=== PATIENT | female | born 1960 | race Caucasian/White ===

== ENCOUNTER 2021-01-28 14:20 | Emergency (ER) | payer MEDICAID, OTHER ==
[2021-01-28] MEDS ORDERED: Propofol 200 MG/20 ML SDV IV ONE (14:21)
[2021-01-28] MEDS ORDERED: Lidocaine 2% 5 ML SDV INJECT ONE (14:21)
[2021-01-28] MEDS ORDERED: HYDROmorphone 2 MG/ML SDV IVPUSH ONE (14:40)
[2021-01-28] MEDS ORDERED: Midazolam 1 MG/ML 2 ML SDV IVPUSH ONE (15:10)
--- NOTE | 2021-01-28 15:53 | EDM.PDOC ---
ED HPI GENERAL MEDICAL PROBLEM - General Chief Complaint: Lower Extremity Injury/Pain Stated Complaint: RIGHT HIP PAIN Time Seen by Provider: 01/28/21 14:20 Source of Information: Reports: Patient History Limitations: Reports: No Limitations - History of Present Illness INITIAL COMMENTS - FREE TEXT/NARRATIVE: c/o right hip pain right THR 3m ago at [facility] for DJD, scheduled for left THR on 02/13 bend over at home to put on boots, twisted to right and felt a pop and thinks the hip came out EMS brings her in Treatments PILOT MANAGER: Reports: IV/IO Other Treatments PILOT MANAGER: 2MG DILAUDID IV, 1MG VERSED IV Right Hip Pain Score (Numeric/FACES): 10 - Related Data Allergies Allergy/AdvReac Type Severity Reaction Status Date / Time No Known Allergies Allergy Verified 01/28/21 14:29 Past Medical History Psychiatric History: Reports: Anxiety Endocrine/Metabolic History: Reports: Hypothyroidism - Past Surgical History GI Surgical History: Reports: Appendectomy Female Surgical History: Reports: Section Neurological Surgical History: Reports: C-Spine, Laminectomy, Lumbar Spine, Spinal Fusion Musculoskeletal Surgical History: Reports: Hip Replacement, Other (See Below) Other Musculoskeletal Surgeries/Procedures:: right total hip Social & Family History - Tobacco Use Tobacco Use Status *Q: Never Tobacco User - Caffeine Use Caffeine Use: Reports: None - Recreational Drug Use Recreational Drug Use: No Review of Systems - Review of Systems Review Of Systems: See Below Constitutional: Reports: No Symptoms Eyes: Reports: No Symptoms Ears: Reports: No Symptoms Nose: Reports: No Symptoms Mouth/Throat: Reports: No Symptoms Respiratory: Reports: No Symptoms Cardiovascular: Reports: No Symptoms GI/Abdominal: Reports: No Symptoms Genitourinary: Reports: No Symptoms Musculoskeletal: Reports: Other (hip pain) Skin: Reports: No Symptoms Neurological: Reports: No Symptoms Psychiatric: Reports: No Symptoms ED EXAM, GENERAL - Physical Exam Exam: See Below Free Text/Narrative:: shortening of right hip, 2+ right DP pulse after reduction XR showed ball superior and slightly inferior to socket but anterior to ilium, d/w radiologist Dr Foster who did not indentiff fx Levi from anesthesia provided sedation, using Captain Navarro technique there was a light clunk and then audible slipping of bone, however still 3 cm of RLE shortening and imaging showed no reduction, Captain Navarro technique used again and there was sudden movement with lengthening of leg and again a light click, legs same length, imaging showed good alignment Exam Limited By: No Limitations General Appearance: Anxious Neurological: Alert, Oriented, CN II-XII Intact, Normal Cognition, No Motor/Sensory Deficits Psychiatric: Anxious Skin Exam: Warm, Dry, Intact, Normal Color, No Rash Lymphatic: No Adenopathy Course - Vital Signs Last Recorded V/S: Last Vital Signs Temp 36.9 C 01/28/21 14:20 Pulse 81 01/28/21 14:20 Resp 22 H 01/28/21 14:20 BP 134/91 H 01/28/21 14:20 Pulse Ox 96 01/28/21 14:20 - Orders/Labs/Meds Orders: Active Orders 24 hr Category Date Time Status Hip Min 1V Rt [CR] Stat Exams 01/28/21 15:46 Taken Hip Min 2V or 3V w Pelvis Rt [CR] Stat Exams 01/28/21 14:58 Taken Meds: Medications Discontinued Medications Generic Name Dose Route Start Last Admin Trade Name Bryanna PRN Reason Stop Dose Admin Hydromorphone HCl 1 mg 01/28/21 14:40 01/28/21 14:44 Hydromorphone 2 Mg/Ml Sdv IVPUSH 01/28/21 14:41 1 mg ONETIME ONE Administration Midazolam HCl 1 mg 01/28/21 15:10 01/28/21 15:20 Midazolam 1 Mg/Ml 2 Ml Sdv IVPUSH 01/28/21 15:11 1 mg ONETIME ONE Administration - Re-Assessments/Exams Free Text/Narrative Re-Assessment/Exam: 01/28/21 16:34 d/w Dr Carrasco reconcilement clerk for carolina Nguyen who recommended crutches with light toe touching and f/u with her surgeon this week pt agrees also has spinal stenosis altho crutches should not affect the back Departure - Departure Time of Disposition: 16:35 Disposition: Home, Self-Care 01 Condition: Good Clinical Impression: Subluxation of right hip - Discharge Information *PRESCRIPTION DRUG MONITORING PROGRAM REVIEWED*: Not Applicable *COPY OF PRESCRIPTION DRUG MONITORING REPORT IN PATIENT KATHERYN: Not Applicable Instructions: Crutch Use, Adult, [id number] Forms: ED Department Discharge Additional Instructions: Avoid bending and twisting at the hip. Use ice to right hip joint for 10 minutes 4 times a day for 2 days, longer if needed. Use crutches. May do light toe touching but do not put full weight on the hip. Sepsis Event Note (ED) - Evaluation Sepsis Screening Result: No Definite Risk - Focused Exam Vital Signs: Vital Signs Temp Pulse Resp BP Pulse Ox 01/28/21 14:20 36.9 C 81 22 H 134/91 H 96 - My Orders Last 24 Hours: My Active Orders 01/28/21 14:58 Hip Min 2V or 3V w Pelvis Rt [CR] Stat 01/28/21 15:46 Hip Min 1V Rt [CR] Stat - Assessment/Plan Last 24 Hours: My Active Orders 01/28/21 14:58 Hip Min 2V or 3V w Pelvis Rt [CR] Stat 01/28/21 15:46 Hip Min 1V Rt [CR] Stat
--- NOTE | 2021-01-28 17:49 | CR ---
INDICATION: Fall with right hip pain. RIGHT HIP: Frontal view of the pelvis with two AP views of the right hip and a lateral view of the right hip revealed a posterosuperior dislocation of the femoral head component of the total hip arthroplasty. No definite fracture site was identified. Degenerative changes are noted at the left hip joint with narrowing of the joint space superiorly. Exuberant new bone formation is noted at the iliac bone on the left, etiology indeterminate and should be correlated clinically as to the possibility of a postsurgical site. Additional workup may be warranted, if no history of postsurgical change is present for that area, such as MRI or CT of the pelvis. MTDD
--- NOTE | 2021-01-28 17:51 | CR ---
INDICATION: Post reduction. RIGHT HIP: Initial view showed evidence of the superior dislocation at the right total hip arthroplasty. A second view with postreduction showed the femoral head component appearing to lie within the acetabular component. It is difficult to entirely exclude continued dislocation without a lateral view, however. MTDD
== END 2021-01-28 16:57 | disposition home or self-care (01) ==
LOC: FB.ED 14:20
DX: S73.001A Unspecified subluxation of right hip, initial encounter (principal); E03.9 Hypothyroidism, unspecified; X50.1XXA Overexertion from prolonged static or awkward postures, initial encounter; Y92.009 Unspecified place in unspecified non-institutional (private) residence as the place of occurrence of the external cause
CPT/HCPCS: 01200-QZ; 27265; 73501-RT; 73502-RT; 96374; 99152; 99153; 99284-25; J1170; J2250; J2704

== ENCOUNTER 2021-02-17 18:30 | Emergency (ER) | payer MEDICAID ==
--- NOTE | 2021-02-17 19:38 | EDM.PDOC ---
ED HPI GENERAL MEDICAL PROBLEM - General Stated Complaint: SWELLING Time Seen by Provider: 02/17/21 19:33 - History of Present Illness INITIAL COMMENTS - FREE TEXT/NARRATIVE: Ms clark complains of left lower ext swelling. She had total hip replacement on that side on Sunday last week. She went yesterday for follow-up and an ultrasound was done for DVT and came back negative. She denies pain,fever or drainage from the wound. On the way from [place] today, she had episodes where she 'lost consciousness' [address] times [address] This happened was at home and she will come felt a few seconds. She describes episodes where she sees white, coming up, allowing flashing, and she drops things and does not remember where she needs. Ms. Clark has a history of anxiety disorder, chronic pain syndrome on opiate contract, restless legs and insomnia. - Related Data Allergies Allergy/AdvReac Type Severity Reaction Status Date / Time No Known Allergies Allergy Verified 01/28/21 14:29 Past Medical History Psychiatric History: Reports: Anxiety Endocrine/Metabolic History: Reports: Hypothyroidism - Past Surgical History GI Surgical History: Reports: Appendectomy Female Surgical History: Reports: Section Neurological Surgical History: Reports: C-Spine, Laminectomy, Lumbar Spine, Spinal Fusion Musculoskeletal Surgical History: Reports: Hip Replacement, Other (See Below) Other Musculoskeletal Surgeries/Procedures:: right total hip Social & Family History - Caffeine Use Caffeine Use: Reports: None ED ROS GENERAL - Review of Systems Review Of Systems: Comprehensive ROS is negative, except as noted in HPI. - Physical Exam Exam: See Below Exam Limited By: No Limitations General Appearance: Alert, No Apparent Distress, Anxious Nose: Normal Inspection Throat/Mouth: Normal Inspection Head Exam: Atraumatic Respiratory/Chest: No Respiratory Distress, Lungs Clear Neuro Exam (Abbreviated): Alert, Oriented, CN II-XII Intact Extremities: Pedal Edema, Increased Warmth #1 Interpretation EKG Date: 02/17/21 Rhythm: NSR [place]: Normal P-Wave: Present QRS: Normal Comparison: No Change Course - Vital Signs Last Recorded V/S: Last Vital Signs Temp 98.8 F 02/17/21 18:35 Pulse 105 H 02/17/21 18:35 Resp 16 02/17/21 18:35 BP 150/105 H 02/17/21 18:35 Pulse Ox 98 12/02/21 18:35 - Orders/Labs/Meds Orders: Active Orders 24 hr Category Date Time Status EKG Documentation Completion [RC] ASDIRECTED Care 02/17/21 19:29 Active EKG Documentation Completion [RC] ASDIRECTED Care 02/17/21 19:29 Active Head wo Cont [CT] Stat Exams 02/17/21 19:29 Ordered UA W/MICROSCOPIC [URIN] Stat Lab 02/17/21 19:29 Ordered EKG 12 Lead [EK] Routine Ther 02/17/21 19:29 Ordered Labs: Laboratory Tests 02/17/21 02/17/21 02/17/21 Range/Units 19:35 19:35 19:35 WBC 6.3 (3.0-10.3) x10-3/uL RBC 3.39 L (3.60-5.20) x10(6)uL Hgb 10.2 L (11.4-15.5) g/dL Hct 30.3 L (34.2-48.2) % MCV 89.3 (76.7-100.5) fL MCH 30.0 (23.9-33.9) pg MCHC 33.6 (31.9-34.8) g/dL RDW 13.8 (12.3-16.5) % Plt Count 331 (151-488) x10(3)uL MPV 6.8 L (7.1-12.4) fL Neut % (Auto) 64.3 (30.8-76.2) % Lymph % (Auto) 21.1 (18.4-52.1) % [place] % (Auto) 9.7 (4.4-15.7) % Eos % (Auto) 4.2 (0.6-8.1) % Baso % (Auto) 0.7 (0.2-1.5) % Neut # (Auto) 4.1 (1.5-6.3) x10-3/uL Lymph # (Auto) 1.3 (1.0-4.4) x10-3/uL [place] # (Auto) 0.6 (0.3-1.0) x10-3/uL Eos # (Auto) 0.3 (0.0-0.8) x10-3/uL Baso # (Auto) 0.0 (0.0-0.1) x10-3/uL Sodium 139 (135-145) mmol/L Potassium 3.7 (3.5-5.3) mmol/L Chloride 103 (100-110) mmol/L Carbon Dioxide 29 (21-32) mmol/L BUN 16 (7-18) mg/dL Creatinine 0.8 (0.55-1.02) mg/dL Est Cr Clr Drug Dosing TNP Estimated GFR (MDRD) > 60 (>60) BUN/Creatinine Ratio 20.0 (9-20) Glucose 100 (80-116) mg/dL Calcium 8.7 (8.6-10.2) mg/dL C-Reactive Protein 10.5 H* (0.5-0.9) mg/dL NT-Pro-B Natriuret Pep 116 (<=125) pg/mL Departure - Departure Time of Disposition: 21:11 Disposition: Home, Self-Care 01 Condition: Good Clinical Impression: Anxiety, Status post left hip replacement - Discharge Information Sepsis Event Note (ED) - Focused Exam Vital Signs: Vital Signs Temp Pulse Resp BP Pulse Ox 02/17/21 18:35 98.8 F 105 H 16 150/105 H 98 - Problem List & Annotations (1) Status post left hip replacement SNOMED Code(s): 079854596, 287253795, 182085121 Code(s): Z96.642 - PRESENCE OF LEFT ARTIFICIAL HIP JOINT Status: Acute C urrent Visit: No (2) Edema of both legs SNOMED Code(s): 582189352, 77774767, 451150583 Code(s): R60.0 - LOCALIZED EDEMA Status: Acute Current Visit: No (3) Anxiety SNOMED Code(s): 69147715 Code(s): F41.9 - ANXIETY DISORDER, UNSPECIFIED Status: Acute Current Visit: No (4) Anemia SNOMED Code(s): 300828541 Code(s): D64.9 - ANEMIA, UNSPECIFIED Status: Acute Current Visit: No (5) Altered level of consciousness SNOMED Code(s): 7272357 Code(s): R40.4 - TRANSIENT ALTERATION OF AWARENESS Status: Acute Current Visit: No - Problem List Review Problem List Initiated/Reviewed/Updated: Yes - My Orders Last 24 Hours: My Active Orders 02/17/21 19:29 EKG Documentation Completion [RC] ASDIRECTED EKG Documentation Completion [RC] ASDIRECTED Head wo Cont [CT] Stat UA W/MICROSCOPIC [URIN] Stat EKG 12 Lead [EK] Routine - Assessment/Plan Last 24 Hours: My Active Orders 02/17/21 19:29 EKG Documentation Completion [RC] ASDIRECTED EKG Documentation Completion [RC] ASDIRECTED Head wo Cont [CT] Stat UA W/MICROSCOPIC [URIN] Stat EKG 12 Lead [EK] Routine Plan: Initial labs were negative. Except mild anemia,deemed post operative. CT head n ormal.DC home,follow up with Neurology/Ortho
== END 2021-02-17 21:30 | disposition home or self-care (01) ==
LOC: FB.ED 18:30
DX: F41.9 Anxiety disorder, unspecified (principal); R60.0 Localized edema; Z96.642 Presence of left artificial hip joint; Z86.718 Personal history of other venous thrombosis and embolism
CPT/HCPCS: 36415; 70450; 80048; 83880; 85025; 86140; 93005; 99284-25

== ENCOUNTER 2021-05-02 17:43 | Emergency (ER) | payer MEDICAID ==
[2021-05-02] MEDS ORDERED: HYDROmorphone 2 MG/ML SDV IM ONE (18:18)
[2021-05-02] MEDS ORDERED: Gabapentin 600 MG Tab PO SCH (18:30)
[2021-05-02] MEDS ORDERED: oxyCODONE 5 MG Tab PO ONE (18:36)
== END 2021-05-02 18:48 | disposition home or self-care (01) ==
LOC: FB.ED 17:43
DX: G89.29 Other chronic pain (principal); M54.50 Low back pain, unspecified; E03.9 Hypothyroidism, unspecified; Z79.899 Other long term (current) drug therapy
CPT/HCPCS: 99283; A9270-GY

== ENCOUNTER 2021-07-14 22:45 | Emergency (ER) | payer BC, MEDICAID ==
[2021-07-14] MEDS ORDERED: Sodium Chloride 0.9% 1,000 ML IV SCH (23:15)
[2021-07-15] MEDS ORDERED: Sodium Chloride 0.9% 1,000 ML IV SCH (00:15)
== END 2021-07-15 02:14 | disposition home or self-care (01) ==
LOC: FB.ED 22:45
DX: I95.1 Orthostatic hypotension (principal); D64.9 Anemia, unspecified; R32 Unspecified urinary incontinence; I10 Essential (primary) hypertension; E03.9 Hypothyroidism, unspecified; Z90.49 Acquired absence of other specified parts of digestive tract; Z79.899 Other long term (current) drug therapy
CPT/HCPCS: 36415; 72131; 80048; 85025; 99283; 99285; J7030

== ENCOUNTER 2021-07-29 00:25 | Emergency (ER) | payer MEDICAID ==
[2021-07-29] MEDS ORDERED: Ketorolac 30 MG/ML SDV IM STA (00:40)
[2021-07-29] MEDS ORDERED: hydrOXYzine HCl 50 MG/ML SDV IM STA (01:02)
[2021-07-29] MEDS ORDERED: Cyclobenzaprine 10 MG Tab PO STA (01:03)
[2021-07-29] MEDS ORDERED: LORazepam 2 MG/ML SDV IM PRN (02:13)
[2021-07-29] MEDS ORDERED: OLANZapine 10 MG Vial IM ONE (02:14)
[2021-07-29] MEDS ORDERED: Ketorolac 30 MG/ML SDV ONE (17:50)
== END 2021-07-29 08:30 | disposition home or self-care (01) ==
LOC: FB.ED 00:25
DX: G89.29 Other chronic pain (principal); M54.50 Low back pain, unspecified; M53.3 Sacrococcygeal disorders, not elsewhere classified; E03.9 Hypothyroidism, unspecified; I10 Essential (primary) hypertension; Z79.899 Other long term (current) drug therapy
CPT/HCPCS: 36415; 80048; 85025; 96372; 99283; A9270; J1885; J2060; J3410; J3490

== ENCOUNTER 2021-07-29 17:01 | Emergency (ER) | payer MEDICAID ==
[2021-07-29] MEDS ORDERED: Ketorolac 30 MG/ML SDV IM ONE (17:41)
[2021-07-29] MEDS ORDERED: Lidocaine 4% 1 each Patch TOP SCH (19:00)
== END 2021-07-29 22:00 | disposition home or self-care (01) ==
LOC: FB.ED 17:01
DX: M54.50 Low back pain, unspecified (principal); M62.81 Muscle weakness (generalized); M53.86 Other specified dorsopathies, lumbar region; E03.9 Hypothyroidism, unspecified; I10 Essential (primary) hypertension; Z79.899 Other long term (current) drug therapy; Z98.1 Arthrodesis status
CPT/HCPCS: 36415; 86140; 96372; 99283; 99285; J1885

== ENCOUNTER 2022-07-18 17:56 | Emergency (ER) | payer MEDICAID ==
[2022-07-18] MEDS ORDERED: Sodium Chloride 0.9% 10 ML Syringe FLUSH PRN (18:50)
[2022-07-18] MEDS ORDERED: Sodium Chloride 0.9% 1,000 ML IV ONE (18:50)
[2022-07-18 19:17] LABS: ESTIMATED GFR 63 mL/min (>60)
[2022-07-18 19:25] LABS: ACETAMINOPHEN < 2 ug/mL (<2)
== END 2022-07-18 23:50 | disposition home or self-care (01) ==
LOC: FB.ED 17:56
DX: R41.82 Altered mental status, unspecified (principal); I10 Essential (primary) hypertension; E03.9 Hypothyroidism, unspecified; Z88.8 Allergy status to other drugs, medicaments and biological substances; Z79.899 Other long term (current) drug therapy; Z87.891 Personal history of nicotine dependence
CPT/HCPCS: 36415; 70450; 80053; 80143; 80179; 80307; 81001; 83605; 83735; 84443; 84484; 85025; 86140; 93005; 93010; 96360; 99285; 99285-25; J7030